=== PATIENT | female | born 1975 | race Caucasian/White ===

== ENCOUNTER 2016-11-08 10:41 | Emergency (ER) | payer OTHER ==
[~2016-11-08] VITALS: Ht 167.6 cm; Wt 88.5 kg
[2016-11-08 11:49] LABS: ABSOLUTE BASOPHIL COUNT 0 /CUMM (0.0-0.2); ABSOLUTE EOSINOPHIL COUNT 0.1 /CUMM (0.0-0.7); ABSOLUTE GRANULOCYTE CT 5.4 /CUMM (1.4-6.5); ABSOLUTE LYMPH COUNT 2.2 /CUMM (1.2-3.4); ABSOLUTE MONOCYTE COUNT 0.4 /CUMM (0.10-0.60); BASOPHIL % 0.4 % (0.0-2.0); EOSINOPHIL % 1.5 % (0-5); GRANULOCYTE % 66.2 % (42.2-75.2); MEAN CORPUSCULAR HGB 29.2 PG (27.0-31.0); MEAN CORPUSCULAR HGB CONC 33.4 G/DL (33.0-37.0); MEAN CORPUSCULAR VOLUME 87.4 FL (81.0-99.0); MEAN PLATELET VOLUME 9.2 FL (7.4-10.4); PLATELET COUNT 283 /CUMM (130-400); RED BLOOD CELL CT 4.69 /CUMM (4.20-5.40); WHITE BLOOD CELL COUNT 8.2 /CUMM (4.8-10.8)
--- NOTE | 2016-11-08 12:42 | ED GI/GU/ABDOMINAL COMPLAINT ---
History of Present Illness General Chief Complaint: Abdominal Pain/Flank Pain Stated Complaint: L SIDED ABD PAIN X 2 DAYS Source: patient, family Exam Limitations: no limitations Vital Signs & Intake/Output Vital Signs & Intake/Output Vital Signs Date Time Temp Pulse Resp B/P B/P Pulse O2 O2 Flow FiO2 Mean Ox Delivery Rate 11/08 1515 98.4 99 14 126/71 99 Room Air 11/08 1336 97.9 98 16 128/73 99 Room Air 11/08 1222 98 Room Air 11/08 1046 98.4 99 18 124/84 98 Room Air Allergies Coded Allergies: NO KNOWN ALLERGIES (10/01/10) Reconcile Medications Venlafaxine HCl (Effexor XR) 75 MG CAP.ER.24H 1 CAP PO DAILY PAIN CONTROL ( Reported) Triage Note: 41 YO FEMALE TO ER C/O L SIDED LOWER ABD PAIN. STATES SHE TOOK A TEST OF WEDNESDAY AND IT WAS POSITIVE. STATES SPOKE TO OBGYN AND WAS TOLD IF THE PAIN GET WORSE TO COME TO THE ER. +DIRRHEA. DENIES N/V. DENIES URIANRY S/S. Triage Nurses Notes Reviewed? yes ? Y Is pt currently ? No HPI: 41 yo F PMH HLD, PCOS presenting with suspected , LLQ pain. Patient has sporadic. Secondary to PCOS, but had not had a period in 2 months, checked a test 2-3 days ago, positive, plans to follow up with EMERGENCY ROOM NURSE tomorrow for further evaluation. Associated intermittent left lower quadrant crampy abdominal pain for the past 1-2 days, worse this morning prompting presentation to the emergency department. Associated diarrhea, with 1-2 loose stools yesterday. Denies fevers, chills, chest pain, shortness of breath, palpitations, nausea, vomiting, aspiration, bloody stools, vaginal bleeding, vaginal discharge , urinary symptoms, headache, dizziness, or focal neurologic symptoms. (MICKEY DOMINGO,SHAILA) Past History Travel History Traveled to [place] past 21 day No Medical History Any Pertinent Medical History? see below for history Neurological: NONE EENT: NONE Cardiovascular: hyperlipidemia Respiratory: NONE Gastrointestinal: NONE Hepatic: NONE Renal: NONE Musculoskeletal: NONE Psychiatric: anxiety Endocrine: NONE Blood Disorders: NONE Cancer(s): NONE TENNIS PROFESSIONAL/Reproductive: NONE Surgical History Surgical History: none Psychosocial History What is your primary language Urdu Tobacco Use: Never used Family History Hx Contributory? Yes (SHAILA AREVALO MD) Review of Systems Review of Systems Constitutional: Reports: no symptoms. EENTM: Reports: no symptoms. Respiratory: Reports: no symptoms. Cardiovascular: Reports: no symptoms. GI: Reports: abdominal pain, diarrhea. Genitourinary: Reports: no symptoms. Musculoskeletal: Reports: no symptoms. Skin: Reports: no symptoms. Neurological/Psychological: Reports: no symptoms. Hematologic/Endocrine: Reports: no symptoms. Immunologic/Allergic: Reports: no symptoms. All Other Systems: Reviewed and Negative (SHAILA AREVALO MD) Physical Exam Physical Exam General Appearance: well developed/nourished, no apparent distress, alert Head: atraumatic, normal appearance Eyes: Bilateral: normal appearance. Ears, Nose, Throat, Mouth: moist mucous membrane Neck: normal inspection, supple, full range of motion Respiratory: normal breath sounds, no respiratory distress, lungs clear Cardiovascular: regular rate/rhythm, normal peripheral pulses Gastrointestinal: soft, tenderness Comments: General: 32-year-old female laying in a hospital bed, no acute distress Abdomen: Mild suprapubic tenderness palpation without rebound or guarding Core Measures ACS in differential dx? No Severe Sepsis Present: No Septic Shock Present: No (SHAILA AREVALO MD) Progress Differential Diagnosis: AAA, AMI, appendicitis, biliary colic, bowel obstruction , colon cancer, cholecystitis, diverticulitis, ectopic , endometritis, esophageal varices, gastritis, hepatitis, hernia, hemorrhoids, ischemic bowel, inflamm bowel dis, intrauterine , kidney stone, Katelynn-Jono tear, ovarian cyst, ovarian torsion, pancreatitis, PID/cervicitis, peptic ulcer, PUD/ GERD, perforated viscous, SBO, threatened AB, UTI/pyelo Plan of Care: Orders Procedure Date/time Status Add-on Test (ER Only) 11/08 1130 Active LIPASE 11/08 111 Complete HUMAN BETA HCG TITRE 11/08 1115 Complete COMPREHENSIVE METABOLIC PANEL 11/08 1115 Complete CBC WITHOUT DIFFERENTIAL 11/08 1115 Complete TYPE & SCREEN (NOT X-MATCH) 11/08 1115 Complete URINE 11/08 1048 Complete URINALYSIS 11/08 1048 Complete Laboratory Tests 11/08/16 1200: Urine Color YEL, Urine Clarity CLEAR, Urine pH 6.5, Ur Specific Merkel 1.010, Urine Protein NEG, Urine Ketones NEG, Urine Nitrite NEG, Urine Bilirubin NEG, Urine Urobilinogen 0.2, Ur Leukocyte Esterase NEG, Ur Microscopic EXAM NOT REQUIRED, Urine Hemoglobin NEG, Urine Glucose NEG, Urine Test POSITIVE 11/08/16 1133: Anion Gap 11, Estimated GFR > 60, BUN/Creatinine Ratio 6.7 L, Glucose 93, Calcium 10.2, Total Bilirubin 0.6, AST 28, ALT 48, Alkaline Phosphatase 79, Total Protein 7.4, Albumin 4.2, Globulin 3.2, Albumin/Globulin Ratio 1.3, Lipase 110, Beta HCG, Quant 3017.5, CBC w Diff NO MAN DIFF REQ, RBC 4.69, MCV 87.4, MCH 29.2, RDW 14.0, MPV 9.2, Gran % 66.2, Lymphocytes % 26.6, Monocytes % 5.3, Eosinophils % 1.5, Basophils % 0.4, Absolute Granulocytes 5.4, Absolute Lymphocytes 2.2, Absolute Monocytes 0.4, Absolute Eosinophils 0.1, Absolute Basophils 0, PUBS MCHC 33.4 Physician MDM: 41 yo F PMH HLD, PCOS presenting with suspected , LLQ pain. VSS, abdominal exam as above. DDx: Ectopic , early , early , less likely ovarian or surgical abdominal pathology. Bedside ultrasound with possible double decidual sign, no definitive pole or yolk sac. CBC, BMP unremarkable. UA negative for white blood cells, red blood cells , or bacteria. Urine positive, beta Quant 3000. Transvaginal ultrasound with possible intrauterine , no definitive pole or yolk sac. Discussed with on-call physician for patient's EMERGENCY ROOM NURSE, recommended close follow-up tomorrow, low concern for ectopic , agrees with discharge. On reexamination patient resting comfortably, abdominal pain resolved without intervention, plans to follow-up with EMERGENCY ROOM NURSE tomorrow, will return to the emergency department for recurrent or worsening pain. Discharge return to care precautions, plan to follow up with EMERGENCY ROOM NURSE tomorrow. (MICKEY DOMINGO,SHAILA) Initial ED EKG: none (MICKEY DOMINGO,SHAILA) Departure Departure Disposition: HOME OR SELF CARE Condition: Stable Clinical Impression Primary Impression: Referrals: CASEY DUVAL APRN (PCP/Family) Additional Instructions: Take Tylenol as needed for pain. Follow-up with your EMERGENCY ROOM NURSE as scheduled tomorrow. Return to the emergency department for any new, worsening, or concerning symptoms. Departure Forms: Customer Survey General Discharge Information (MICKEY DOMINGO,SHAILA) PA/THREAD MARKER Co-Sign Statement Statement: ED Attending supervision documentation- [] I saw and evaluated the patient. I have also reviewed all the pertinent lab results and diagnostic results. I agree with the findings and the plan of care as documented in the PA's/THREAD MARKER's documentation. [X] I have reviewed the ED Record and agree with the PA's/THREAD MARKER's documentation. [] Additions or exceptions (if any) to the PAs/THREAD MARKER's note and plan are summarized below: [] (RAISA DOMINGO,LOLIS)
[2016-11-08] MEDS ORDERED: EFFEXOR XR75 M1 PO (13:38)
--- NOTE | 2016-11-08 13:58 | ULTRASOUND REPORT ---
EXAMINATION: US TRANSVAGINAL CLINICAL INFORMATION: 41-year-old female patient with positive test and cramping left lower quadrant pain. LMP 09/15/2016. According to dates, the estimated gestational age is 7 weeks 5 days. This yields an LESLIE of 06/22/2017. No vaginal bleeding. Per chart: HCG 3018 IU. COMPARISON: None TECHNIQUE: Transabdominal and endovaginal examination of the pelvis. Grayscale and color Doppler imaging were combined with pulse-wave Doppler interrogation and spectral analysis. FINDINGS: The uterus is anteverted. Endometrial canal thickness is 8 mm. Ill-defined cystic structure within the medullary canal with double decidual ring most likely representing a very early intrauterine gestational sac. The sac diameter would correspond to a gestational age of 5 weeks. No yolk sac or pole is demonstrated. Prominent nabothian cysts are present in the cervix. The left ovary is not visualized. The right ovary is normal in size and echo appearance measuring 3.4 x 2.2 x 3.2 cm. Normal venous and arterial blood flow is seen in the right ovary. No free fluid is seen in the cul-de-sac. IMPRESSION: Probable early intrauterine gestation. No visible yolk sac or pole. Recommend follow-up endovaginal ultrasound examination and serial beta hCG levels.
[2016-11-08 15:15] VITALS: BP 126/71
== END 2016-11-08 15:18 ==
LOC: ERH 10:41
PROVIDERS: Student in an Organized Health Care Education/Training Program
DX: O26.90 Pregnancy related conditions, unspecified, unspecified trimester (principal); R10.32 Left lower quadrant pain
CPT/HCPCS: 76817; 81003; 81025